=== PATIENT | male | born 1930 | race Two or more races ===

== ENCOUNTER 2018-06-16 00:21 | Inpatient (IN) | payer MEDICARE ==
[~2018-06-16] VITALS: Ht 167.6 cm; Wt 67.1 kg
[2018-06-16] VITALS (7 sets, daily range): BP systolic 94–147; BP diastolic 47–69
[2018-06-16] MEDS ORDERED: MAG HYDROX/AL HYDROX/SIMETH 30 ML UDC PO PRN (02:00)
[2018-06-16] MEDS ORDERED: TEMAZEPAM 7.5 MG CAPSULE PO PRN (02:00)
[2018-06-16] MEDS ORDERED: ACETAMINOPHEN 325 MG TABLET PO PRN (02:00)
[2018-06-16] MEDS ORDERED: LORAZEPAM 0.5 MG TABLET PO PRN (02:00)
[2018-06-16] MEDS ORDERED: CHOL200026 PO (02:37)
[2018-06-16] MEDS ORDERED: CYAN10009 PO (02:37)
[2018-06-16] MEDS ORDERED: LEVO100T9 PO (02:37)
[2018-06-16] MEDS ORDERED: ATEN25TA PO (02:37)
[2018-06-16] MEDS ORDERED: DILT180C66 PO (02:37)
[2018-06-16] MEDS ORDERED: RAMI10CA69 PO (02:37)
[2018-06-16] MEDS ORDERED: ISOS30TA6 PO (02:37)
[2018-06-16] MEDS ORDERED: ATOR10TA PO (02:37)
--- NOTE | 2018-06-16 03:22 | NUR ---
ADMISSION NOTES ADMITTED THIS 87Y/O MALE PATIENT ADMIT FROM , PT IS ON 5150 , DANGER TO SELF , PER HOLD 5150 PT.PRESENTING WITH SI , SELF INFLICTED LACERATION ,SUTURED WOUND WITH MULTIPLE STITCHES ON LEFT WRIST,LEFT HAND ,LEFT FOREARM , . UPON FACE TO FACE ASSESSMENT PATIENT IS A&O X-2 COOPERATIVE,CALM , FLAT AFFECT, DEPRESSED , PT.IS POOR HISTORIAN, POOR INSIGHT ,POOR JUDGEMENT ,V/S WNL, NO ACUTE DISTRESS NOTED, DENIES SI /HI AT THIS TIME,DENIES ANY PAIN DISCOMFORT AT THIS TIME MD AWARE AND NOTIFIED OF THE ADMISSION, PT SKIN ASSESSMENT DONE, PICTURE TAKEN AND PLACED IN THE CHART , ENCOURAGED PT. VERBALIZED ANY FEELING CONCERN TO STAFF, ORIENT TO UNIT POLICY, WILL CONTINUE TO MONITOR FOR Q15, CONTRACT FOR SAFETY AND BEHAVIOR.
--- NOTE | 2018-06-16 05:00 | NUR ---
GPS RN NOTES: NOTIFIED OUTSIDE SOLAR SALES CONSULTANT FRANKLIN BOOTH NP , REGARDING NEW ADMIT MEDRECON, YANE BOOTH, WILL DAY SHIFT , DO IT.
[2018-06-16 06:58] LABS: APPEARANCE,URINE SL CLOUDY (CLEAR); BILIRUBIN,URINE NEGATIVE (NEGATIVE); BLOOD, URINE 3+ Ery/uL (NEGATIVE); COLOR,URINE YELLOW (YELLOW); KETONES,URINE NEGATIVE (NEGATIVE); LEUKOCYTE ESTERASE ,URINE NEGATIVE (NEGATIVE); NITRITE, URINE NEGATIVE (NEGATIVE); PH,URINE 6.5 (5.0-8.0); PROTEIN,URINE NEGATIVE (NEGATIVE); UGLUCOSE NEGATIVE (NEGATIVE); UROBILINOGEN,URINE 0.2 EU/dL (0.2)
[2018-06-16 07:27] LABS: BACTERIA,URINE Rare /HPF (None Seen); SQUAMOUS EPITHELIAL CELL,UR Rare /HPF (None Seen)
[2018-06-16] MEDS ORDERED: RAMIPRIL 5 MG CAPSULE PO SCH (09:30)
[2018-06-16] MEDS: CHOLECALCIFEROL (VITAMIN D 3) 400 UNIT TABLET PO SCH (10:03)
[2018-06-16] MEDS: CYANOCOBALAMIN 500 MCG TABLET PO SCH (10:04)
[2018-06-16] MEDS: DILTIAZEM HCL CD 120 MG PO SCH (10:04)
[2018-06-16] MEDS: ATENOLOL 25 MG TABLET PO SCH (10:05)
[2018-06-16] MEDS: LISINOPRIL (20MG) 20 MG TABLET PO SCH ×2 (10:05→10:55)
[2018-06-16] MEDS: ISOSORBIDE MONONITRATE (30MG) 30 MG TAB.SR.24H PO SCH (10:05)
[2018-06-16] MEDS: MAGNESIUM HYDROXIDE 30 ML UDC PO PRN (10:08)
--- NOTE | 2018-06-16 11:06 | NUR ---
GPS RN NOTES: PATIENT CAME OUT FROM THE ROOM AND ASKED FOR A CHAIR. THEN SUDDENLY PATIENT GOT DIZZY. PATIENT THEN ASSISTED TO THE FLOOR TO PREVENT HIM FROM FALLING DIRECTLY INTO THE FLOOR. BP THEN CHECKED RIGHT AWAY 88/44, HR 68, O2 SAT-98%. PATIENT IS ALERT A,D AWAKE AND ABLE TO ANSWER QUESTIONS BRIEFLY. PATIENT PLACED IN [place] POSITION IN THE BED, FLUIDS GIVEN TOLERATED. BP RECHECKED 104/52, HR-72, O2 SAT- 97%. FADIA CHAUDHARY NP PAGED AND NOTIFIED REGARDING THE SITUATION, SHE CALLED BACK THE UNIT AT 11:06 AM AND GAVE ORDERS FOR ALL LAB CMP, U/A AND ORTHOSTATIC BP'S. ORDERS NOTED AND CARRIED OUT. JET ALSO REMINDED REGARDING PATIENTS CODE STATUS-DNR/DNI. PATIENT THEN PLACED ON 1:1 SITTER FOR FALL RISK AND SUICIDAL PRECAUTIONS.
[2018-06-16 11:31] LABS: BASOPHILS % (AUTO) 0.3 % (0.0-2.0); EOSINOPHILS % (AUTO) 0.5 % (0.0-6.0); HEMATOCRIT 38 % (39-51); LYMPHOCYTES # (AUTO) 1.6 /CMM (0.8-4.8); LYMPHOCYTES % (AUTO) 19.6 % (20.0-44.0); MEAN CORPUSCULAR HGB CONC 34 g/dl (31.0-36.0); MEAN CORPUSCULAR VOLUME 95 fL (80-96); MONOCYTES # (AUTO) 0.8 /CMM (0.1-1.30); MONOCYTES % (AUTO) 9.2 % (2.0-12.0); NEUTROPHILS # (AUTO) 5.9 /CMM (1.8-8.9); NEUTROPHILS % (AUTO) 70.4 % (43.0-81.0); PLATELET COUNT (AUTO) 240 /CMM (150-450); RED BLOOD CELL COUNT(AUTO) 4.02 MIL/uL (4.5-6.0); WHITE BLOOD COUNT (AUTO) 8.4 K/uL (4.3-11.0)
[2018-06-16 12:38] LABS: ALANINE AMINOTRANSFERASE 22 U/L (12-78); ALBUMIN 2.9 g/dL (3.4-5.0); ALKALINE PHOSPHATASE 73 U/L (46-116); ASPARTATE AMINOTRANSFERASE 19 U/L (15-37); BILIRUBIN,TOTAL 0.4 mg/dL (0.2-1.0); CALCIUM, SERUM 8.6 mg/dL (8.5-10.1); CARBON DIOXIDE 26 mmol/L (21-32); CHLORIDE 101 mmol/L (98-107); CREATININE 0.8 mg/dL (0.6-1.3); GLUCOSE 83 mg/dL (74-106); SODIUM SERUM 138 mmol/L (136-145); UREA NITROGEN, BLOOD 9 mg/dL (7-18)
--- NOTE | 2018-06-16 13:05 | NUR ---
GPS RN NOTES: FADIA MAY NP CALLED THE UNIT. NURSE UPDATED HER OF PATIENT'S LAB RESULT. AND RELAYED ORTHOSTATIC BP'S. WITH ORDERS TO HOLD BP MEDS THIS TIME. WILL CONTINUE TO MONITOR PATIENT. 1:1 SITTER MAINTAINED.
--- NOTE | 2018-06-16 14:12 | NUR ---
GPS RN NOTES: PATIENT ON 1:1 SITTER. SITTER NOTED THE PATIENT TO GET OFF THE BED TO GO TO THE BATHROOM. PATIENT HAD ANOTHER DIZZY EPISODE, THE SITTER WAS ABLE TO PREVENT THE FALL BY ASSISTING HIM BACK TO THE BED, BP CHECKED 95/51 HR- 69, O2 SAT AT 97%. PAGED MOE CHAUDHARY FOR FURTHER ORDERS.
--- NOTE | 2018-06-16 14:24 | NUR ---
GPS/RN CALLED JACLYN CHAUDHARY NP FOR ORDERS THROUGH [employer]. WAITING FOR CALL BACK.
[2018-06-16] MEDS ORDERED: IV NS 0.9% 1,000 ML IV ONE (15:00)
--- NOTE | 2018-06-16 15:44 | NUR ---
GPS RN NOTES: IV FLUID STARTED ON THE RIGHT FOREARM WITH IV CATH G#22 WITH GOOD BACK FLOW. NS 1 LITER GIVEN BOLUS. SITE APPEARS WELL, NO REDNESS OR PHLEBITIS ON SITE. 1:1 SITTER MAINTAINED FOR SAFETY.
--- NOTE | 2018-06-16 17:01 | NUR ---
GPS RN NOTES: IV BOLUS DONE. SITE KEPT. WILL CONTINUE TO MONITOR PATIENT.
[2018-06-16] MEDS: MIRTAZAPINE 15 MG TABLET PO SCH (21:41)
[2018-06-17 05:00] VITALS: BP 128/64
--- NOTE | 2018-06-17 06:51 | NUR ---
GPS RN NOTES: DURING SHIFT PT. RESTING WELL, AND NO EPISODE OF DIZZINESS NOTED ,VITAL SIGNS WNL, SEE THE VITAL SIGNS CHART, NON ACUTE DISTRESS NOTED, WILL ENDORSE TO NEXT SHIFT FOR CONTINUITY OF CARE.
[2018-06-17 07:45] LABS: BASOPHILS % (AUTO) 0.1 % (0.0-2.0); EOSINOPHILS % (AUTO) 0.5 % (0.0-6.0); HEMATOCRIT 41 % (39-51); HEMOGLOBIN 13.5 g/dL (13.5-17.5); LYMPHOCYTES # (AUTO) 2.1 /CMM (0.8-4.8); LYMPHOCYTES % (AUTO) 20.6 % (20.0-44.0); MEAN CORPUSCULAR HGB CONC 33 g/dl (31.0-36.0); MEAN CORPUSCULAR VOLUME 96 fL (80-96); MONOCYTES # (AUTO) 0.8 /CMM (0.1-1.30); MONOCYTES % (AUTO) 8.2 % (2.0-12.0); NEUTROPHILS % (AUTO) 70.6 % (43.0-81.0); PLATELET COUNT (AUTO) 254 /CMM (150-450); RED BLOOD CELL COUNT(AUTO) 4.24 MIL/uL (4.5-6.0)
[2018-06-17 07:58] LABS: ALANINE AMINOTRANSFERASE 23 U/L (12-78); ALBUMIN 3.2 g/dL (3.4-5.0); ALKALINE PHOSPHATASE 75 U/L (46-116); ASPARTATE AMINOTRANSFERASE 24 U/L (15-37); BILIRUBIN,TOTAL 0.5 mg/dL (0.2-1.0); CALCIUM, SERUM 8.4 mg/dL (8.5-10.1); CARBON DIOXIDE 27 mmol/L (21-32); CHLORIDE 105 mmol/L (98-107); CREATININE 0.7 mg/dL (0.6-1.3); GLUCOSE 87 mg/dL (74-106); POTASSIUM 3.8 mmol/L (3.5-5.1); SODIUM SERUM 140 mmol/L (136-145); TOTAL PROTEIN, SERUM 6.5 g/dL (6.4-8.2); UREA NITROGEN, BLOOD 15 mg/dL (7-18)
[2018-06-17 08:00] VITALS: BP 138/57
[2018-06-17 08:03] LABS: CHOLESTEROL 115 mg/dL (<200); HDL CHOLESTEROL 52 mg/dL (40-60); LDL 50 mg/dL (0-99); TRIGLYCERIDES 118 mg/dL (30-150)
[2018-06-17] MEDS: CYANOCOBALAMIN 500 MCG TABLET PO SCH (08:14)
[2018-06-17] MEDS: CHOLECALCIFEROL (VITAMIN D 3) 400 UNIT TABLET PO SCH (08:14)
[2018-06-17] MEDS: LEVOTHYROXINE SODIUM 50 MCG TABLET PO SCH (08:14)
[2018-06-17] MEDS: DILTIAZEM HCL CD 120 MG PO SCH (08:49)
[2018-06-17] MEDS: ISOSORBIDE MONONITRATE (30MG) 30 MG TAB.SR.24H PO SCH (08:49)
[2018-06-17] MEDS: LISINOPRIL (20MG) 20 MG TABLET PO SCH (08:50)
[2018-06-17] MEDS: ATENOLOL 25 MG TABLET PO SCH (08:50)
[2018-06-17] MEDS: ATORVASTATIN 10 MG TABLET PO SCH (09:10)
--- NOTE | 2018-06-17 10:00 | NUR ---
GPS RN NOTES: PATIENT'S BP MEDS ON HOLD VERBALLY ORDERED BY MOE CHAUDHARY. WILL CONTINUE TO MONITOR PATIENT'S BP.
[2018-06-17] MEDS: DOCUSATE SODIUM 100 MG CAPSULE PO SCH ×2 (12:41→16:50)
--- NOTE | 2018-06-17 14:00 | NUR ---
GPS RN NOTES: CT SCAN, ECHOCARDIOGRAM, EKG DONE. ALL RESULTS SEEN BY MOE CHAUDHARY. NO FURTHER ORDERS THIS TIME. PATIENT'S VITALS SIGNS STABLE. WILL CONTINUE TO MONITOR.
[2018-06-17 16:00] VITALS: BP 158/78
--- NOTE | 2018-06-17 19:00 | NUR ---
GPS RN OPENING NOTES RECEIVED PATIENT AWAKE ALERT SITTING IN BED READING, NO S/S OF COMPLAINTS OF PAIN AT THIS TIME, PATIENT IS DISPLAYING NO S/S OF APPARENT DISTRESS AT THIS TIME, PATIENT RESPIRATIONS IS UNLABORED WITH EQUAL RISE AND FALL OF CHEST. PATIENT IS ALERT AND ORIENTED X2 ON ROOM AIR WITH SPO2 95%.PATIENT IS MED COMPLAINT, AMBULATORY, DEPRESSED WITH UNSTEADY GAIT PATIENT ASSISTED WITH STANDBY ASSIST WHEN AMBULATING , FALL PRECAUTIONS RENDERED ON SITTER PRECAUTIONS 1:1 PATIENT DENIES SI AND HI AT THIS TIME,PATIENT HAS NO NEEDS AT THIS TIME,PATIENT EDUCATED ON THE USE OF CALL TRAN, SAFETY PRECAUTIONS IN PLACE BED IS LOW AND LOCKED FOR SAFETY WILL CONTINUE TO MONITOR AND MAINTAIN SAFETY AND Q15 MIN CHECKS RENDERED.
[2018-06-17 20:00] VITALS: BP 149/71
[2018-06-17 20:11] VITALS: BP 149/71
[2018-06-17] MEDS: MIRTAZAPINE 15 MG TABLET PO SCH (21:34)
--- NOTE | 2018-06-18 06:32 | NUR ---
GPS RN NOTES PATIENT NOTED WITH ONE EPISODE OF DIZZINESS, NO CHANGE IN VITAL SIGNS B/P WNL .147/71 HEART RATE 91, SPO2 99%RA, RESP 18, REMAINS SAFE [id number] RENDERED. ALL NEEDS ATTENDED. NO CHANGE IN LOC. PATIENT REMAINS SAFE. SITTER AT BEDSIDE.
[2018-06-18 08:00] VITALS: BP 144/73
[2018-06-18] MEDS: DOCUSATE SODIUM 100 MG CAPSULE PO SCH ×3 (08:35→17:00)
[2018-06-18] MEDS: ATORVASTATIN 10 MG TABLET PO SCH (08:35)
[2018-06-18] MEDS: LEVOTHYROXINE SODIUM 50 MCG TABLET PO SCH (08:35)
[2018-06-18] MEDS: CYANOCOBALAMIN 500 MCG TABLET PO SCH (08:36)
[2018-06-18] MEDS: CHOLECALCIFEROL (VITAMIN D 3) 400 UNIT TABLET PO SCH (08:36)
[2018-06-18] MEDS: ISOSORBIDE MONONITRATE (30MG) 30 MG TAB.SR.24H PO SCH (09:00)
[2018-06-18] MEDS: DILTIAZEM HCL CD 120 MG PO SCH (09:00)
[2018-06-18] MEDS: LISINOPRIL (20MG) 20 MG TABLET PO SCH (09:00)
[2018-06-18] MEDS: ATENOLOL 25 MG TABLET PO SCH (09:00)
--- NOTE | 2018-06-18 10:38 | NUR ---
GPS RN NOTES: WOUND CARE NURSE J CARLOS CAME TO THE UNIT TO ASSESS PATIENT WOUNDS ON THE LEFT ARM. WOUND NOTED TO HAVE NO SIGNS OF INFECTION, NO DRAINAGE NOTED THIS TIME., APPEARS FRESH AND CLEAN. WOUNDS CLEANSED WITH NS, PAT DRIED AND APPLIED MEPILEX DRESSING AND WRAPPED IN BANDAGE.
--- NOTE | 2018-06-18 10:49 | NUR ---
WOUND CARE CONSULT: PT PRESENTS WITH LEFT ARM SUTURED LACERATIONS. SMALL AMOUNT OF SEROSANGUINOUS DRAINAGE NOTED ON OLD DRESSINGS. NO SIGN OF INFECTION NOTED. RECOMMEND MD FOLLOW UP OF SUTURES. RECOMMENDATIONS MADE FOR WOUND/SKIN PROTECTION AND DISCUSSED WITH NURSING STAFF. PT IS AMBULATORY AND CONTINENT. WILL SEE PRN. MD IN AGREEMENT WITH PLAN OF CARE.
--- NOTE | 2018-06-18 12:10 | NUR ---
KAE called the pt's partner, Daren Hall ([phone]), and the initial discharge plan was discussed. He stated that he believes that the pt should be released soon and returned back to [place] to his alf home.
--- NOTE | 2018-06-18 14:41 | NUR ---
Initial Discharge Plan: Pt currently resides at [facility] located at [address] [place] [address]; ([phone]). Per pt, he would like to return to the [facility] home upon discharge. KAE will work with the pt and the MD regarding appropriate discharge planning. SW will form a safe and proper discharge.
--- NOTE | 2018-06-18 14:42 | NUR ---
KAE called [facility] of [facility] ([phone]) and spoke to Marla, environmental marketing representative, who stated that the pt can return to the [facility] home but she also presented the option that he can move apartments because there is an available unit if he wanted to avoid being in the same environment.
[2018-06-18 16:14] VITALS: BP 148/74
--- NOTE | 2018-06-18 19:15 | NUR ---
GPS RN OPENING NOTE RECEIVED PT IN BED, NO S/S OF DISTRESS AT THIS TIME, DENIES SI/HI, ALERT AN ORIENTED X 3, TOLERATING ROOM AIR O2 SAT 96%. PATIENT IS AMBULATORY AND INDEPENDENT IN BED MOBILITY. SAFETY PRECAUTIONS IN PLACE, BED PLACED IN LOW POSITION AND LOCKED IN PLACE.WILL CONTINUE TO MONITOR FOR PT SAFETY WITH 1:1 SITTER AT ALL TIMES.
[2018-06-18 20:00] VITALS: BP 140/69
[2018-06-18 20:15] VITALS: BP 140/69
[2018-06-18] MEDS: MIRTAZAPINE 15 MG TABLET PO SCH (21:38)
--- NOTE | 2018-06-18 21:55 | NUR ---
REPORT GIVEN TO ISMAEL NGUYEN FOR CONTINUITY OF CARE
[2018-06-18] MEDS: TEMAZEPAM 15 MG CAPSULE PO PRN (22:37)
--- NOTE | 2018-06-18 22:37 | NUR ---
GPS-RN PATIENT C/O UNABLE TO SLEEP AND REQUESTED SLEEPING PILL. ADMINISTERED RESTORIL 15MG PO ORDERED BUT PATIENT REFUSED AFTER IT WAS OPENED. MEDS WASTED AND WITNESSED BY RN.
[2018-06-19 08:00] VITALS: BP 127/71
[2018-06-19] MEDS: LEVOTHYROXINE SODIUM 50 MCG TABLET PO SCH (08:11)
[2018-06-19] MEDS: LISINOPRIL (20MG) 20 MG TABLET PO SCH (09:00)
--- NOTE | 2018-06-19 09:00 | NUR ---
NURSING NOTE: CALLED [facility] FOR DR. RODRIGUEZ REGARDING PT'S BP MEDS WAS UNABLE TO SPEAK TO DR. RODRIGUEZ AND LEFT MESSAGE TO CALL BACK. WILL HOLD BP MEDS UNTIL CONFIRMING WITH DR. RODRIGUEZ.
[2018-06-19] MEDS: CHOLECALCIFEROL (VITAMIN D 3) 400 UNIT TABLET PO SCH (09:30)
[2018-06-19] MEDS: ATORVASTATIN 10 MG TABLET PO SCH (09:30)
[2018-06-19] MEDS: CYANOCOBALAMIN 500 MCG TABLET PO SCH (09:30)
[2018-06-19] MEDS: MAGNESIUM HYDROXIDE 30 ML UDC PO PRN (09:48)
--- NOTE | 2018-06-19 10:00 | NUR ---
NURSING NOTE: TRIED TO CONTACT DR. RODRIGUEZ AGAIN REGARDING BP MEDS AND HAVE NOT BEEN ABLE TO GET A HOLD OF HIM. BP MEDS HAVE BEEN HELD FOR NOW UNTIL DR. RODRIGUEZ HAS BEEN MADE AWARE. BP 127/71, HR 80. WILL CONTINUE TO MONITOR.
--- NOTE | 2018-06-19 11:10 | NUR ---
NURSING NOTE: PER DR. MICHAEL WHITE TO ADMINISTER BP MEDS BUT DECREASE LISINOPRIL 10MG PO DAILY. WILL CONTINUE TO MONITOR.
[2018-06-19] MEDS: ATENOLOL 25 MG TABLET PO SCH (11:13)
[2018-06-19] MEDS: DILTIAZEM HCL CD 120 MG PO SCH (11:14)
[2018-06-19] MEDS: ISOSORBIDE MONONITRATE (30MG) 30 MG TAB.SR.24H PO SCH (11:14)
[2018-06-19] MEDS: DOCUSATE SODIUM 100 MG CAPSULE PO SCH ×3 (11:25→17:49)
[2018-06-19] MEDS: LISINOPRIL (10MG) 10 MG TABLET PO SCH (13:03)
[2018-06-19 16:00] VITALS: BP 125/68
--- NOTE | 2018-06-19 16:04 | NUR ---
Group note: Pt attended a group session on 06/19/18 at 11AM discussing the topic that if they could change one thing in their life what would it be and why. S: I do not want to change anything about my life because it is fine the way that it is. The only thing is that I have been having pain in my stomach due to my constipation and therefore I have not been able to sleep. That is what led me to think about killing myself. O: Pt was present during the group session and was cooperative. Pt appeared to be in a depressed mood with an anxious affect. Pt was observed to be in distress and rested his head on his hand throughout a majority of the group. A: Pt understood that he needs to think his decisions through because it is dangerous making rash decisions and think about the aspects of his life that he values. P: Pt will continue milieu treatment and medication stabilization.
[2018-06-19 19:32] VITALS: BP 127/49
[2018-06-19] MEDS: MIRTAZAPINE 15 MG TABLET PO SCH (21:21)
[2018-06-20] MEDS: LEVOTHYROXINE SODIUM 50 MCG TABLET PO SCH (07:52)
[2018-06-20 08:00] VITALS: BP 145/59
[2018-06-20] MEDS: CHOLECALCIFEROL (VITAMIN D 3) 400 UNIT TABLET PO SCH (08:13)
[2018-06-20] MEDS: DOCUSATE SODIUM 100 MG CAPSULE PO SCH ×3 (08:13→16:31)
[2018-06-20] MEDS: ATORVASTATIN 10 MG TABLET PO SCH (08:13)
[2018-06-20] MEDS: ISOSORBIDE MONONITRATE (30MG) 30 MG TAB.SR.24H PO SCH (08:13)
[2018-06-20] MEDS: CYANOCOBALAMIN 500 MCG TABLET PO SCH (08:14)
[2018-06-20] MEDS: DILTIAZEM HCL CD 120 MG PO SCH (08:14)
[2018-06-20] MEDS: ATENOLOL 25 MG TABLET PO SCH (08:14)
[2018-06-20] MEDS: LISINOPRIL (10MG) 10 MG TABLET PO SCH (08:14)
[2018-06-20 16:00] VITALS: BP 145/52
[2018-06-20 20:24] VITALS: BP 107/57
[2018-06-20 20:33] VITALS: BP 109/57
[2018-06-20] MEDS: MIRTAZAPINE 15 MG TABLET PO SCH (20:49)
[2018-06-20] MEDS: TEMAZEPAM 15 MG CAPSULE PO PRN (20:57)
[2018-06-21 07:52] LABS: CALCIUM, SERUM 7.9 mg/dL (8.5-10.1); CARBON DIOXIDE 28 mmol/L (21-32); CHLORIDE 106 mmol/L (98-107); CREATININE 0.7 mg/dL (0.6-1.3); GLUCOSE 88 mg/dL (74-106); PHOSPHORUS 3.3 mg/dL (2.5-4.9); POTASSIUM 3.8 mmol/L (3.5-5.1); SODIUM SERUM 143 mmol/L (136-145); UREA NITROGEN, BLOOD 14 mg/dL (7-18)
[2018-06-21 07:55] LABS: BASOPHILS % (AUTO) 0.3 % (0.0-2.0); EOSINOPHILS % (AUTO) 1.7 % (0.0-6.0); HEMATOCRIT 36 % (39-51); LYMPHOCYTES % (AUTO) 28.7 % (20.0-44.0); MEAN CORPUSCULAR HGB CONC 33 g/dl (31.0-36.0); MEAN CORPUSCULAR VOLUME 96 fL (80-96); MONOCYTES # (AUTO) 0.7 /CMM (0.1-1.30); MONOCYTES % (AUTO) 9.3 % (2.0-12.0); NEUTROPHILS # (AUTO) 4.2 /CMM (1.8-8.9); PLATELET COUNT (AUTO) 264 /CMM (150-450); RED BLOOD CELL COUNT(AUTO) 3.76 MIL/uL (4.5-6.0)
[2018-06-21 08:00] VITALS: BP 146/69
[2018-06-21] MEDS: CHOLECALCIFEROL (VITAMIN D 3) 400 UNIT TABLET PO SCH (08:03)
[2018-06-21] MEDS: DOCUSATE SODIUM 100 MG CAPSULE PO SCH ×3 (08:03→16:03)
[2018-06-21] MEDS: LEVOTHYROXINE SODIUM 50 MCG TABLET PO SCH (08:03)
[2018-06-21] MEDS: CYANOCOBALAMIN 500 MCG TABLET PO SCH (08:03)
[2018-06-21] MEDS: DILTIAZEM HCL CD 120 MG PO SCH (08:04)
[2018-06-21] MEDS: ATENOLOL 25 MG TABLET PO SCH (08:04)
[2018-06-21] MEDS: ISOSORBIDE MONONITRATE (30MG) 30 MG TAB.SR.24H PO SCH (08:04)
[2018-06-21] MEDS: LISINOPRIL (10MG) 10 MG TABLET PO SCH (08:05)
[2018-06-21] MEDS: ATORVASTATIN 10 MG TABLET PO SCH (08:12)
[2018-06-21] MEDS ORDERED: IV NS 0.9% 1,000 ML BAG IV PRN (15:00)
[2018-06-21 15:11] VITALS: BP 52/29
--- NOTE | 2018-06-21 15:15 | NUR ---
GPS/RN - SHIPPER AND RECEIVING 14:20 - Patient is alert and oriented x 3, denies chest pain, no apparent distress prior to incident. Patient has history of HTN, HLD, A.Fib, Hypotension, Syncope. Patient was sitting in the chair in the activity room and was found unresponsive by staff. Vitals checked BP 52/29, HR 65, RR 10, SaO2 98% on room air, BS 110 mg/dL. SHIPPER AND RECEIVING called for change in condition. 14:22 - SHIPPER AND RECEIVING arrived at the scene. (IV line inserted on the RFA, NS bolus started) 14:25 - Dr. Villarreal was notified. 14:30 - Dr. Villarreal returned call with orders. 14:45 - SHIPPER AND RECEIVING ended (Patient regained consciousness, A/O x 3, BP 98/53 HR 57 RR 14 SaO2 98%)
[2018-06-21 16:00] VITALS: BP 109/56
[2018-06-21 20:00] VITALS: BP 130/53
[2018-06-21] MEDS: MIRTAZAPINE 15 MG TABLET PO SCH ×2 (21:41→22:00)
--- NOTE | 2018-06-22 06:15 | NUR ---
GPS/RN PATIENT IS STILL IN BED AWAKE, APPEAR COMFORTABLE, NO DISTRESS NOTED, ALL NEEDS ATTENDED AT THIS TIME, WILL CONTINUE TO MONITOR.
[2018-06-22 08:01] VITALS: BP 132/80
[2018-06-22] MEDS: CHOLECALCIFEROL (VITAMIN D 3) 400 UNIT TABLET PO SCH (08:39)
[2018-06-22] MEDS: DOCUSATE SODIUM 100 MG CAPSULE PO SCH ×3 (08:39→17:08)
[2018-06-22] MEDS: LEVOTHYROXINE SODIUM 50 MCG TABLET PO SCH (08:39)
[2018-06-22] MEDS: ATORVASTATIN 10 MG TABLET PO SCH (08:40)
[2018-06-22] MEDS: ATENOLOL 25 MG TABLET PO SCH (08:41)
[2018-06-22] MEDS: CYANOCOBALAMIN 500 MCG TABLET PO SCH (08:42)
[2018-06-22] MEDS: DILTIAZEM HCL CD 120 MG PO SCH (08:43)
[2018-06-22] MEDS: LISINOPRIL (10MG) 10 MG TABLET PO SCH (08:43)
[2018-06-22] MEDS: ISOSORBIDE MONONITRATE (30MG) 30 MG TAB.SR.24H PO SCH (08:43)
[2018-06-22 16:58] VITALS: BP 142/75
--- NOTE | 2018-06-22 19:40 | NUR ---
GPS/RN OPENING NOTES RECEIVED REPORT FROM DAYSHIFT RN. FOUND Pt AWAKE, RESTING IN BED. NO S/S OF ACUTE DISTRESS OR SOB NOTED. Pt IS A/OX3, VERBAL, ABLE TO MAKE NEEDS KNOWN. Pt IS COOPERATIVE, AND MED COMPLIANT. Pt HAS IV ACCESS ON RHAND #22G DUE TO MICA PATCHER CALLED ON 06/21 DUE TO LOW BP. 1L OF NS BOLUS WAS GIVEN. PER DAYSHIFT RN, TO KEEP IV ACCESS ON RHAND UNTIL TONIGHT, AND IF BP MAINTAINS STABLE UNTIL TOMORROW MORNING, CAN REMOVE IV THEN. SAFETY MEASURES IN PLACE. BED LOW, LOCKED, HOB ELEVATED, & SIDE RAILS UP. WILL CONTINUE TO MONITOR Pt's CONDITION AND SAFETY THROUGHOUT THE NIGHT.
[2018-06-22 20:00] VITALS: BP 121/50
[2018-06-22] MEDS: TEMAZEPAM 15 MG CAPSULE PO PRN (20:38)
[2018-06-22] MEDS: MIRTAZAPINE 15 MG TABLET PO SCH (20:38)
--- NOTE | 2018-06-22 20:40 | NUR ---
RN NOTES PER Pt REQUEST WANTED TO TAKE HIS NIGHT MEDS EARLY. WANTED TO GO TO BED EARLY AND DID NOT WANT TO BE DISTURBED LATER.
[2018-06-22 21:00] VITALS: BP 121/50
--- NOTE | 2018-06-23 06:52 | NUR ---
RN CLOSING NOTES NO SIGNIFICANT CHANGES IN Pt's CONDITION. Pt REMAINS STABLE PER BASELINE. NO S/S OF ACUTE DISTRESS OR SOB NOTED DURING THE NIGHT. ALL NEEDS MET AND ATTENDED TO. SAFETY MEASURES IN PLACE. SITTER AT BEDSIDE. WILL ENDORSE TO DAYSHIFT RN FOR Pt's ARTIS.
[2018-06-23 07:50] VITALS: BP 134/80
[2018-06-23] MEDS: CYANOCOBALAMIN 500 MCG TABLET PO SCH (08:39)
[2018-06-23] MEDS: CHOLECALCIFEROL (VITAMIN D 3) 400 UNIT TABLET PO SCH (08:39)
[2018-06-23] MEDS: LEVOTHYROXINE SODIUM 50 MCG TABLET PO SCH (08:40)
[2018-06-23] MEDS: ATORVASTATIN 10 MG TABLET PO SCH (08:40)
[2018-06-23] MEDS: ISOSORBIDE MONONITRATE (30MG) 30 MG TAB.SR.24H PO SCH (09:48)
[2018-06-23] MEDS: DILTIAZEM HCL CD 120 MG PO SCH (09:48)
[2018-06-23] MEDS: DOCUSATE SODIUM 100 MG CAPSULE PO SCH ×3 (09:48→17:01)
[2018-06-23] MEDS: ATENOLOL 25 MG TABLET PO SCH (09:49)
[2018-06-23] MEDS: LISINOPRIL (10MG) 10 MG TABLET PO SCH (09:49)
--- NOTE | 2018-06-23 10:30 | NUR ---
GPS RN NOTES: DRESSING ON THE LEFT HAND CHANGED. SITE IS FREE OF INFECTION,CLEANSED WITH NS, PAT DRIED AND APPLIED MEPILEX AND WRAPPED WITH KERLIX. PICTURES DONE AND PLACED IN THE CHART. WILL FOLLOW UP.
[2018-06-23 16:09] VITALS: BP 152/81
[2018-06-23 20:00] VITALS: BP 153/95
[2018-06-23 20:32] VITALS: BP 153/95
[2018-06-23] MEDS: MIRTAZAPINE 15 MG TABLET PO SCH (23:01)
[2018-06-24 08:00] VITALS: BP 158/78
[2018-06-24] MEDS: LEVOTHYROXINE SODIUM 50 MCG TABLET PO SCH (08:23)
[2018-06-24] MEDS: CHOLECALCIFEROL (VITAMIN D 3) 400 UNIT TABLET PO SCH (08:23)
[2018-06-24] MEDS: ATORVASTATIN 10 MG TABLET PO SCH (08:24)
[2018-06-24] MEDS: ISOSORBIDE MONONITRATE (30MG) 30 MG TAB.SR.24H PO SCH (08:24)
[2018-06-24] MEDS: DOCUSATE SODIUM 100 MG CAPSULE PO SCH ×3 (08:24→16:11)
[2018-06-24] MEDS: CYANOCOBALAMIN 500 MCG TABLET PO SCH (08:25)
[2018-06-24] MEDS: ATENOLOL 25 MG TABLET PO SCH (08:25)
[2018-06-24] MEDS: DILTIAZEM HCL CD 120 MG PO SCH (10:33)
--- NOTE | 2018-06-24 11:15 | NUR ---
gps site safety representative: notes dr. ospina here and made aware that pt is going back to [facility] with order okay for discharge and continue home medications. order carried out and acknowledged. pt aware and friend will pick him up between 2-3pm per maryjo (social worker masters).
--- NOTE | 2018-06-24 11:40 | NUR ---
GPS FINANCIAL WELLNESS COACH: NOTES DR. CAMACHO NOTIFIED AND MADE AWARE RE: D'C BACK TO [facility] AND INFORMED ME THAT PT IS NOT CLEAR YET. CALL TRANSFER TO SIDRA (CANINE DEPUTY).
--- NOTE | 2018-06-24 11:50 | NUR ---
GPS TIMBER BUYER: NOTES SIDRA (Viv) SPOKE TO PT AND INFORMED HIM THAT HE IS NOT CLEAR YET BY PSYCHIATRIST AND WILL BE SEEING HIM TODAY. PT VERBALIZED UNDERSTANDING AND FOR D'C PLANNING TOMORROW. PT IS CLEAR BY COURT PER PROJECT MANAGER INDUSTRIAL. WILL CONTINUE TO MONITOR.
--- NOTE | 2018-06-24 11:56 | NUR ---
KAE called Leslie from [facility] ([phone]) and informed her that the pt will be discharging today and that his partner will be bringing him back up. She asked the SW to fax over the discharge paperwork.
--- NOTE | 2018-06-24 12:00 | NUR ---
KAE faxed the discharge paperwork to [facility] with attention to Leslie to the fax number: [phone].
--- NOTE | 2018-06-24 12:03 | NUR ---
SW received a call from Dr. Cha ([phone]), pt's psychiatrist, who stated that the pt is not being discharged today because the psychiatrist wants to evaluate the pt today before deciding.
--- NOTE | 2018-06-24 12:07 | NUR ---
KAE called the pt's partner, Daren Hall ([phone]), and informed him that the pt will not be discharging today due to the psychiatrist wanting to evaluate the pt.
--- NOTE | 2018-06-24 12:14 | NUR ---
KAE called Leslie from [facility] ([phone]) and informed her that the pt will not be discharged today. She stated that she thinks medication management would be helpful for the pt when he returns and asked for a note from the psychiatrist. She also asked that it can be explained to the pt why medication management would be beneficial for him.
[2018-06-24] MEDS: LISINOPRIL (10MG) 10 MG TABLET PO SCH (13:00)
[2018-06-24 16:00] VITALS: BP 102/56
[2018-06-24 21:37] VITALS: BP 141/65
[2018-06-24] MEDS: MIRTAZAPINE 15 MG TABLET PO SCH (21:43)
[2018-06-25 08:00] VITALS: BP 144/62
[2018-06-25] MEDS: DOCUSATE SODIUM 100 MG CAPSULE PO SCH ×2 (09:08→12:06)
[2018-06-25] MEDS: ATORVASTATIN 10 MG TABLET PO SCH (09:08)
[2018-06-25] MEDS: DILTIAZEM HCL CD 120 MG PO SCH (09:08)
[2018-06-25] MEDS: LEVOTHYROXINE SODIUM 50 MCG TABLET PO SCH (09:09)
[2018-06-25] MEDS: CHOLECALCIFEROL (VITAMIN D 3) 400 UNIT TABLET PO SCH (09:09)
[2018-06-25] MEDS: LISINOPRIL (10MG) 10 MG TABLET PO SCH (09:10)
[2018-06-25] MEDS: CYANOCOBALAMIN 500 MCG TABLET PO SCH (09:10)
[2018-06-25] MEDS: ATENOLOL 25 MG TABLET PO SCH (09:10)
[2018-06-25 09:11] VITALS: BP 144/62
[2018-06-25] MEDS: ISOSORBIDE MONONITRATE (30MG) 30 MG TAB.SR.24H PO SCH (09:11)
--- NOTE | 2018-06-25 10:30 | NUR ---
RN-CO: DR CAMACHO GAVE AN ORDER TO DISCONTINUE HOLD AND DISCHARGE PATIENT TODAY. NOTED. PATIENT DENIED SUICIDAL AND HOMICIDAL IDEATION. DENIED AUDITORY AND VISUAL HALLUCINATION. CALM AND COOPERATIVE DURING HIS STAY IN THE UNIT.
--- NOTE | 2018-06-25 11:00 | NUR ---
RN-CO: HE WAS MEDICALLY CLEARED BY MOVING CONSULTANT.
--- NOTE | 2018-06-25 12:25 | NUR ---
KAE called Leslie from [facility] ([phone]) and informed her that the pt will be discharged today and that the SW would attempt to get the medical doctor to write a note stating that the pt requires medication management.
--- NOTE | 2018-06-25 12:25 | NUR ---
KAE called the pt's partner, Daren Hall ([phone]), and informed him that the pt will be discharging today and that his discharge time is set for 2pm. He stated that he would leave [place] around 12pm so that he can grain picker the pt on time.
--- NOTE | 2018-06-25 13:45 | NUR ---
GPS/RN-NOTES PATIENT WAS DISCHARGE TO HOME TODAY. DR. CAMACHO AND ELIZABETH RODRIGUEZ MADE AWARE AND AGREED OF PATIENT DISCHARGE. DISCHARGE PAPERS WAS SIGN BY THE PATIENT.ALL DISCHARGE MEDICATIONS WAS REVIEWED WITH THE PATIENT WITH UNDERSTANDING. RX WAS GIVEN TO HIM INCLUDING DISCHARGE PAPERS.PATIENT DID NOT VERBALIZE SI/HI,DENIES VISUAL/AUDITORY HALLUCINATIONS AT THE TIME OF DISCHARGE. REMINDED PATIENT TO FOLLOW UP WITH HIS PRIMARY PHYSICIAN. PATIENT LEFT THE UNIT IN STABLE CONDITION ALERT ORIENTED X4,AMBULATORY WITH STEADY GAIT. WEAVER DOBBY LOOM BY PARTNER THAD PURCELL VIA PRIVATE CAR.
--- NOTE | 2018-06-25 16:00 | NUR ---
Discharge Note: Pt was discharged to [facility] located at [address], [address], [place] [address]; ([phone]). Pt was picked up by his partner, Daren ([phone]), around 2:00pm. Upon discharge, the pt appeared to be in a euthymic mood and presented as having a calm and content affect. The pt stated that he was happy about being able to return to his life. The pt denied both suicidal and homicidal ideation as well as auditory and visual hallucinations upon discharge. The pt will follow up with his psychiatrist, Dr. Juanita Ro, located at [address], [place] [address]; and his axle bearing polisher, Dr. Kian Jansen, located at [address], [place] [address]; .
== END 2018-06-25 13:45 | disposition home or self-care (01) | DRG 881 ==
LOC: GPS 00:21
PROVIDERS: ADMIT Psychiatry & Neurology Psychiatry; ATTEND Psychiatry & Neurology Psychiatry
DX: F32.9 Major depressive disorder, single episode, unspecified (principal); I10 Essential (primary) hypertension; E78.5 Hyperlipidemia, unspecified; I48.91 Unspecified atrial fibrillation; I95.9 Hypotension, unspecified; I67.2 Cerebral atherosclerosis; R55 Syncope and collapse; Z86.73 Personal history of transient ischemic attack (TIA), and cerebral infarction without residual deficits
CPT/HCPCS: 36415; 70450-TC; 80048-TC; 80053-TC; 80061-TC; 81000-TC; 82962-TC; 83735-TC; 84100-TC; 85025-TC; 87081-TC; 93307-TC; A6253; A6403; J7030